=== PATIENT | male | born 1990 | race African-American/Black ===

== ENCOUNTER 2021-08-19 13:15 | Emergency (ER) | payer OTHER, SELFPAY ==
[2021-08-19 13:31] VITALS: BP 140/79; PULSE 80; RESP 18; TEMP 36.4; O2SAT 99
== END 2021-08-19 17:29 | disposition left against medical advice (07) ==
PROVIDERS: Emergency Provider Emergency Medicine
DX: R22.2 Localized swelling, mass and lump, trunk (principal)
CPT/HCPCS: 99281

== ENCOUNTER → 2023-06-17 | Outpatient (CLI) | payer OTHER, SELFPAY ==
--- NOTE | 2023-06-17 | DI.NM.S_ITS ---
PROCEDURE: NM GASTRIC EMPTYING STUDY RADIOPHARMACEUTICAL: 1.0 mCi Tc-99m sulfur colloid in an egg sandwich. INDICATIONS: EVAL FOR GASTROPARESIS TECHNIQUE: A Tc-99m labeled sulfur colloid labeled egg sandwich or oatmeal was served to the patient. Anterior and posterior planar images of the abdomen were obtained at 0 minutes and 30 minutes, then at hourly intervals up to 4 hours. The patient was upright and ambulating during the interval. COMPARISON: None. FINDINGS: Patient could not tolerate the food, exam was canceled. No images were taken. IMPRESSION: Patient could not tolerate the food. No images were taken and the exam was cancel. Dictated by: Isai Corral M.D. on 06/17/2023 at 9:28 Approved by: Isai Corral M.D. on 06/17/2023 at 9:31
== END ==
PROVIDERS: PCP Registered Nurse; Referring Provider Registered Nurse; Visit Provider Registered Nurse
DX: Z01.89 Encounter for other specified special examinations (principal)
CPT/HCPCS: 78264; A9541

== ENCOUNTER → 2023-06-18 | Outpatient (CLI) | payer OTHER, SELFPAY ==
--- NOTE | 2023-06-18 | DI.NM.S_ITS ---
PROCEDURE: MD GASTRIC EMPTYING STUDY RADIOPHARMACEUTICAL: 1.0 mCi Tc-99m sulfur colloid in an egg sandwich. INDICATIONS: Encounter for other specified special examinations TECHNIQUE: A Tc-99m labeled sulfur colloid labeled egg sandwich or oatmeal was served to the patient. Anterior and posterior planar images of the abdomen were obtained at 0 minutes and 30 minutes, then at hourly intervals up to 4 hours. The patient was upright and ambulating during the interval. COMPARISON: [place], [place], MD GASTRIC EMPTYING STUDY, 06/17/2023, 8:36. FINDINGS: The stomach has normal size, morphology, and position. There is normal emptying of solid gastric contents from the stomach by visual inspection. No gastroesophageal reflux is visualized. The percentage of tracer retained at specific time points are as follows: Time point Percent gastric retention Normal range 30 minutes 25% 70% or more 1 hour 20% 30% to 90% 2 hours 8% 60% or less 3 hours 3% 30% or less 4 hours not applicable 10% or less IMPRESSION: Significant increased gastric emptying which may represent dumping syndrome. Dictated by: Margie Hartmann M.D. on 06/18/2023 at 16:57 Approved by: Margie Hartmann M.D. on 06/18/2023 at 17:01
== END ==
PROVIDERS: PCP Registered Nurse; Referring Provider Registered Nurse; Visit Provider Registered Nurse
DX: Z01.89 Encounter for other specified special examinations (principal)
CPT/HCPCS: 78264; A9541